=== PATIENT | male | born 2000 | race Caucasian/White ===

== ENCOUNTER 2018-10-31 00:20 | Emergency (ER) | payer MEDICAID ==
[~2018-10-31] VITALS: Ht 182.9 cm; Wt 77.1 kg
[2018-10-31 00:29] VITALS: BP 145/95
[2018-10-31] MEDS ORDERED: CYCLOBENZAPRINE 10 MG TABLET PO ONE (01:30)
[2018-10-31] MEDS ORDERED: HYDROCODONE/APAP 5/325MG 1 EACH TABLET PO ONE (01:30)
[2018-10-31] MEDS ORDERED: ONDANSETRON 4 MG TAB.RAPDIS SL ONE (01:30)
== END 2018-10-31 01:56 | disposition home or self-care (01) ==
LOC: ER 00:25
DX: S40.011A Contusion of right shoulder, initial encounter (principal); S70.02XA Contusion of left hip, initial encounter; V49.59XA Passenger injured in collision with other motor vehicles in traffic accident, initial encounter; Y93.89 Activity, other specified; Y92.413 State road as the place of occurrence of the external cause; Y99.8 Other external cause status
CPT/HCPCS: 72170; 73030; 99284; Q0162